=== PATIENT | female | born 1950 | race Caucasian/White ===

== ENCOUNTER → 2017-12-01 | Outpatient (CLI) | payer BC ==
[~2017-12-01] MED LIST: ACET-2031 PO; ALP5 PO; AMLO-543 PO; AMLO-96 PO; ATOR40TA24 PO; BACDS PO; CA C1TAB11 PO; CA C1TAB58 PO; CHOL10005 PO; IRBE150T7 PO; METF-421 PO; MULT-820 PO; PANT40TA13 PO; POLY17PO25 PO; SIMV-42 PO; SUC1 PO; TUM500 PO; VEN75 PO; VENL75CA4 PO
--- NOTE | 2017-12-01 11:39 | RADIOLOGY IMAGING REPORT ---
[place] [facility] [place] NAME: Yoli Walker : 1950 MR: [id number] V: [id number] EXAM DATE: ORDERING PHYSICIAN: JARRETT MCKINNON TECHNOLOGIST: [place] [facility] [place] [facility] [place] : 1950 Visit/Account:[id number] Date of Sevice: 12/01/2017 DEXA Scan Clinical history: Postmenopausal estrogen deficiency. Comparison: DEXA scan from 04/04/2008. LUMBAR SPINE: The bone mineral density (BMD) measured from L1-L4 correlates with a Z-score of 1.3 and a T-score of -0.3 which is Normal as defined by the World Health Organization. The corresponding risk of fracture in the lumbar spine is Not increased compared with a young adult reference population. This value h as decrease by 3.4 % since the prior study. More than 5% change is considered significant. HIP: Bone mineral density (BMD) measured in the LEFT total hip region correlates with a Z-score -0.2 and a T-score of -1.5 which is osteopenia as defined by the World Health Organization. The corresponding risk of fracture in the hip is 3 times increased compared to a young adult reference population. This value has decrease by 7.7% % since the prior study. More than 5% change is considered significant. T score left femoral neck -1.9 Bone mineral density (BMD) measured in the Femoral Neck region measures 0.773 g/cm?. IMPRESSION: 1. Lumbar spine: Normal. There has been 3.4% decrease in the bone mineral density since the previou s exam. 2. Left Total Hip: Osteopenia. There has been 7.7% decrease in the bone mineral density since the p revious exam. 3. Femoral Neck: Bone Mineral Density is 0.773 g/cm? The next DEXA scan of this patient should include the following sites: L1-L4 and the left hip. FRAX? WHO Fracture Risk Assessment Tool link: <http://www.shef.ac.uk/FRAX/tool.jsp?locationValue=9> PLEASE NOTE: 1) The World Health Organization defines low BMD as follows: T-score Normal > -1 Osteopenia < -1 and > -2.5 Osteoporosis < -2.5 without fractures Established osteoporosis < -2.5 with fractures 2) In general, you may wish to consider: Diagnosis Treatment Follow-up DEXA Normal BMD Prevention 2-3 years Osteopenia Prevention/therapy 1-2 years Osteoporosis Therapy Yearly 3) Fracture risk estimated from the T-score is more accurate for vertebral fractures (often spontane ous) than for hip fractures. Report Dictated By: Andreina Cruz MD at 12/01/2017 11:34 AM Report E-Signed By: Andreina Cruz MD at 12/01/2017 11:35 AM WSN:[email or web address]
== END ==
LOC: RAD 06:55
PROVIDERS: ATTEND Emergency Medicine
DX: Z13.820 Encounter for screening for osteoporosis (principal); M85.88 Other specified disorders of bone density and structure, other site
CPT/HCPCS: 77080

== ENCOUNTER → 2017-12-16 | Outpatient (CLI) | payer BC | LOC: LAB 10:34 | PROVIDERS: ATTEND Emergency Medicine | DX: M85.80 Other specified disorders of bone density and structure, unspecified site (principal) | CPT/HCPCS: 36415; 82310; 83970 ==

== ENCOUNTER → 2018-01-18 | Outpatient (CLI) | payer BC ==
[~2018-01-18] MED LIST changes: +RANI-366 PO
--- NOTE | 2018-01-19 11:43 | RADIOLOGY IMAGING REPORT ---
FACILITY: [facility] - [place] PATIENT NAME: ANDREA ESTRADA : [id number] MR: [id number] V: [id number] EXAM DATE: ORDERING PHYSICIAN: JARRETT MCKINNON TECHNOLOGIST: Mounika Carroll PROCEDURE:BILATERAL DIGITAL SCREENING MAMMOGRAM WITH CAD ASSISTED INTERPRETATION & 3D TOMOSYNTHESIS COMPARISON:Prior mammograms 01/15/17, 01/15/16, 01/12/15, 02/17/12, 01/31/11. INDICATIONS:SCREENING FINDINGS: Moderately dense fibroglandular tissue is seen throughout the breasts. The parenchymal pattern has remained stable allowing for difference in mammographic technique & patient positioning. There is no evidence of malignant appearing mass, malignant appearing calcifications or other secondary sign of malignancy in either breast. DIAGNOSTIC CATEGORY 1--NEGATIVE. RECOMMENDATIONS: ROUTINE MAMMOGRAM AND CLINICAL EVALUATION. IMPRESSION: BIRADS 1: Negative. No significant abnormality is seen. Dictated by: Andreina Cruz M.D. on 01/19/2018 at 8:32 Transcribed by: WILMA on 01/19/2018 at 8:56 Approved by: Andreina Cruz M.D. on 01/19/2018 at 11:42 [facility]
== END ==
LOC: MAMO 01:50
PROVIDERS: ATTEND Emergency Medicine
DX: Z12.31 Encounter for screening mammogram for malignant neoplasm of breast (principal)
CPT/HCPCS: 77063; 77067

== ENCOUNTER → 2018-07-08 | Outpatient (CLI) | payer BC ==
[~2018-07-08] MED LIST changes: +AMLO-111 PO; -AMLO-96 PO; -METF-421 PO; +METF-452 PO
--- NOTE | 2018-07-08 11:27 | EKG ---
FACILITY: [facility] - [place] PATIENT NAME: ANDREA ESTRADA : [id number] MR: [id number] V: [id number] EXAM DATE: ORDERING PHYSICIAN: KARLOS JIN TECHNOLOGIST: Test Reason : Pre-op Blood Pressure : / mmHG Vent. Rate : 067 BPM Atrial Rate : 067 BPM P-R Int : 172 ms QRS Dur : 082 ms QT Int : 406 ms P-R-T Axes : 061 -10 067 degrees QTc Int : 429 ms Sinus rhythm Slight ST elevation in anterior leads Poor R wave progression anteriorly No previous ECGs available Confirmed by SY LUCIANO ([id number]) on 07/08/2018 7:53:50 PM Referred By: Confirmed By:SY LUCIANO
== END ==
LOC: RESP 11:12
PROVIDERS: ATTEND Anesthesiology
DX: Z01.810 Encounter for preprocedural cardiovascular examination (principal); M75.102 Unspecified rotator cuff tear or rupture of left shoulder, not specified as traumatic
CPT/HCPCS: 93005

== ENCOUNTER 2018-09-16 07:51 | Emergency (ER) | payer BC ==
[~2018-09-16 07:51] MED LIST changes: -AMLO-111 PO; +AMLO-125 PO
[2018-09-16] MEDS ORDERED: ASPIRIN 81 MG CHEW PO ONE (08:10)
[2018-09-16 08:31] LABS: PLATELET COUNT, AUTOMATED 224 K/uL (150-450)
--- NOTE | 2018-09-16 08:32 | ER Report ---
History and Physical Time Seen By MD: 08:15 Hx. of Stated Complaint: ROTATOR CUFF SURG WITH SLING FOR LONG TIME CAUSING PAIN ACROSS CHEST, AWOKE HER LAST NIGHT HPI/ROS CHIEF COMPLAINT: Left anterior chest wall pain HISTORY OF PRESENT ILLNESS: Patient is a 67 year old female s/p right shoulder rotator cuff surgery; complaining of right chest wall pain; feels that this is related to her shoulder sling. There is a pleuritic component; but no actual pressure or exertional sx. No fevers or chills; No risk factors for VTE other than recent surgery. REVIEW OF SYSTEMS: Constitutional: No fever, no chills. Eyes: No discharge. ENT: No sore throat. Cardiovascular: Left anterior chest wall pain Respiratory: Dyspnea on exertion Gastrointestinal: No abdominal pain, no vomiting. Genitourinary: No hematuria. Musculoskeletal: No back pain. Skin: No rashes. Neurological: No headache. Allergies: Coded Allergies: erythromycin base (Verified Allergy, Mild, VOMITING, 09/16/18) Home Meds Active Scripts Irbesartan (IRBESARTAN) 150 Mg Tablet, 150 MG PO QDAY, #90 TAB 3 Refills Prov:JARRETT MCKINNON MD 07/09/18 Ranitidine Hcl (ZANTAC) 150 Mg Tablet, 150 MG PO BID, #180 TAB 3 Refills Prov:JARRETT MCKINNON MD 06/18/18 Atorvastatin Calcium (LIPITOR) 40 Mg Tablet, 1 TAB PO QDAY, #90 TAB 3 Refills Prov:JARRETT MCKINNON MD 03/30/18 Amlodipine Besylate (AMLODIPINE BESYLATE) 5 Mg Tablet, 0.5 TAB PO QDAY, #45 TAB 3 Refills Prov:JARRETT MCKINNON MD 11/30/17 Venlafaxine Hcl (VENLAFAXINE HCL ER) 75 Mg Cap.er.24h, 75 MG PO QDAY, #90 TAB 3 Refills Prov:JARRETT MCKINNON MD 11/30/17 Reported Medications Polyethylene Glycol 3350 (MIRALAX) 17 Gm Powd.pack, 17 GM PO BID 01/31/13 Acetaminophen (ACETAMINOPHEN) 325 Mg Tablet, 2 TAB PO TID, #2 01/31/13 Ca Carbonate/Vitamin D3/Vit K (Viactiv Tablet Chew) 1 Tab.chew Tab.chew, 1 TAB.CHEW PO DAILY 01/17/09 Discontinued Reported Medications Cholecalciferol (Vitamin D3) (VITAMIN D3) Unknown Strength Tablet, PO, TAB 11/30/17 Ca Carbonate/Vitamin D3/Vit K (VIACTIV SOFT CHEW TABLET) 1 Each Tab.chew, 1 EACH PO DAILY, TAB.CHEW 11/30/17 Multivitamins (Multivitamin) 1 Tab Tablet, 1 TAB PO DAILY 01/17/09 Past Medical/Surgical History Right shoulder surgery Hx Smoking: No Smoking Status: Never Smoker Exposure to Second Hand Smoke?: Yes (both parents smoked) Hx Substance Use Disorder: No Hx Alcohol Use: No Constitutional Vital Sign - Last 24 Hours 09/16/18 09/16/18 09/16/18 09/16/18 07:56 07:57 08:00 08:21 Temp 97.9 Pulse 60 60 Resp 20 13 B/P (MAP) 144/86 144/86 (105) 155/87 (109) Pulse Ox 100 O2 Delivery Room Air 09/16/18 09/16/18 09/16/18 09/16/18 08:30 08:35 09:00 09:05 Pulse 56 57 Resp 13 10 B/P (MAP) 155/86 (109) 150/76 (100) Pulse Ox 99 97 09/16/18 09/16/18 09/16/18 09/16/18 09:30 09:35 09:55 10:00 Resp 23 B/P (MAP) 148/115 (126) 149/82 (104) 152/89 (110) Pulse Ox 97 09/16/18 09/16/18 09/16/18 09/16/18 10:05 10:30 10:35 11:05 Pulse 59 59 57 Resp 16 14 13 B/P (MAP) 150/84 (106) Pulse Ox 96 98 98 09/16/18 11:35 Pulse 66 Resp 13 Pulse Ox 100 Physical Exam General/Constitutional: Patient is awake, alert, nontoxic and in no acute respiratory distress. Head: Normocephalic and atraumatic. Eyes: Conjunctival clear, Pupils are equal and reactive to light. Extraocular muscles are intact and symmetrical. Sclera are clear and anicteric. Ears:External canals are clear. Tympanic membranes are clear with normal [place] dmarks and light reflex. Nares: No rhinorrhea or bleeding. Turbinates are pink and moist. Oropharyngeal: Mucous membranes are moist. Neck: Supple, no adenopathy. Cardiovascular: Heart is regular rate and rhythm without audible murmurs, rubs or gallops. Pulmonary: Lungs are clear to auscultation bilaterally. There are no wheezes, rales, or rhonchi. Chest rise is symmetrical Abdomen: Soft, nontender, no guarding or peritoneal signs. Extremities: No gross deformities, No peripheral cyanosis. Able to move all 4 extremities. Neuro: Alert and oriented X3 Skin: No rashes, skin is warm dry and well perfused. Medical Decision Making Data Points Result Diagram: 09/16/18 0812 09/16/18 0812 Laboratory Hematology Test 09/16/18 08:12 09/16/18 08:47 Red Blood Count 4.78 M/uL (4.17-5.56) Mean Corpuscular Volume 96.0 fL (80.0-96.0) Mean Corpuscular Hemoglobin 32.9 pg (26.0-33.0) Mean Corpuscular Hemoglobin Concent 34.3 g/dL (32.0-36.0) Red Cell Distribution Width 13.8 % (11.5-14.5) Mean Platelet Volume 7.5 fL (7.2-11.1) Neutrophils (%) (Auto) 52.0 % (39.4-72.5) Lymphocytes (%) (Auto) 31.0 % (17.6-49.6) Monocytes (%) (Auto) 13.4 % (4.1-12.4) Eosinophils (%) (Auto) 2.9 % (0.4-6.7) Basophils (%) (Auto) 0.7 % (0.3-1.4) Nucleated RBC Relative Count (auto) 0.1 /100WBC Neutrophils # (Auto) 1.9 K/uL (2.0-7.4) Lymphocytes # (Auto) 1.2 K/uL (1.3-3.6) Monocytes # (Auto) 0.5 K/uL (0.3-1.0) Eosinophils # (Auto) 0.1 K/uL (0.0-0.5) Basophils # (Auto) 0.0 K/uL (0.0-0.1) Nucleated RBC Absolute Count (auto) 0.00 K/uL Prothrombin Time 12.8 seconds (12.0-14.4) Prothromb Time International Ratio 0.96 Activated Partial Thromboplast Time 30 seconds (23-35) D-Dimer Quantitative (PE/DVT) 0.73 ug/ml (0-0.50) Sodium Level 136 mmol/L (137-145) Potassium Level 4.0 mmol/L (3.5-5.0) Chloride Level 98 mmol/L (98-107) Carbon Dioxide Level 32 mmol/L (22-31) Blood Urea Nitrogen 17 mg/dl (7-18) Creatinine 1.00 mg/dl (0.52-1.04) Glomerular Filtration Rate Calc 55.1 Random Glucose 108 mg/dl (75-110) Calcium Level 9.4 mg/dl (8.4-10.2) Total Bilirubin 0.7 mg/dl (0.2-1.3) Aspartate Amino Transf (AST/SGOT) 35 U/L (0-35) Alanine Aminotransferase (ALT/SGPT) 30 U/L (0-56) Alkaline Phosphatase 90 U/L (0-126) Troponin I < 0.012 ng/ml B-Type Natriuretic Peptide 35 pg/ml (0-100) Total Protein 7.3 g/dl (6.3-8.2) Albumin 4.4 g/dl (3.5-5.0) Influenza Virus Type A (PCR) Negative (NEGATIVE) Influenza Virus Type B (PCR) Negative (NEGATIVE) Chemistry Test 09/16/18 08:12 09/16/18 08:47 White Blood Count 3.7 k/uL (4.5-11.0) Red Blood Count 4.78 M/uL (4.17-5.56) Hemoglobin 15.7 g/dL (12.0-16.0) Hematocrit 45.9 % (34.0-47.0) Mean Corpuscular Volume 96.0 fL (80.0-96.0) Mean Corpuscular Hemoglobin 32.9 pg (26.0-33.0) Mean Corpuscular Hemoglobin Concent 34.3 g/dL (32.0-36.0) Red Cell Distribution Width 13.8 % (11.5-14.5) Platelet Count 224 K/uL (150-450) Mean Platelet Volume 7.5 fL (7.2-11.1) Neutrophils (%) (Auto) 52.0 % (39.4-72.5) Lymphocytes (%) (Auto) 31.0 % (17.6-49.6) Monocytes (%) (Auto) 13.4 % (4.1-12.4) Eosinophils (%) (Auto) 2.9 % (0.4-6.7) Basophils (%) (Auto) 0.7 % (0.3-1.4) Nucleated RBC Relative Count (auto) 0.1 /100WBC Neutrophils # (Auto) 1.9 K/uL (2.0-7.4) Lymphocytes # (Auto) 1.2 K/uL (1.3-3.6) Monocytes # (Auto) 0.5 K/uL (0.3-1.0) Eosinophils # (Auto) 0.1 K/uL (0.0-0.5) Basophils # (Auto) 0.0 K/uL (0.0-0.1) Nucleated RBC Absolute Count (auto) 0.00 K/uL Prothrombin Time 12.8 seconds (12.0-14.4) Prothromb Time International Ratio 0.96 Activated Partial Thromboplast Time 30 seconds (23-35) D-Dimer Quantitative (PE/DVT) 0.73 ug/ml (0-0.50) Glomerular Filtration Rate Calc 55.1 Calcium Level 9.4 mg/dl (8.4-10.2) Total Bilirubin 0.7 mg/dl (0.2-1.3) Aspartate Amino Transf (AST/SGOT) 35 U/L (0-35) Alanine Aminotransferase (ALT/SGPT) 30 U/L (0-56) Alkaline Phosphatase 90 U/L (0-126) Troponin I < 0.012 ng/ml B-Type Natriuretic Peptide 35 pg/ml (0-100) Total Protein 7.3 g/dl (6.3-8.2) Albumin 4.4 g/dl (3.5-5.0) Influenza Virus Type A (PCR) Negative (NEGATIVE) Influenza Virus Type B (PCR) Negative (NEGATIVE) Coagulation Test 09/16/18 08:12 Prothrombin Time 12.8 seconds Prothromb Time International Ratio 0.96 Activated Partial Thromboplast Time 30 seconds D-Dimer Quantitative (PE/DVT) 0.73 ug/ml EKG/Imaging Imaging FACILITY: [facility] - [place] PATIENT NAME: Yoli Walker : 1950 MR: [id number] V: [id number] EXAM DATE: ORDERING PHYSICIAN: LISA MEADOWS TECHNOLOGIST: Location: [facility] Patient: Yoli Walker : 1950 Visit/Account:[id number] Date of Sevice: 09/16/2018 CT CTA CHEST W & W/O CON HISTORY: Chest pain. Shortness of breath. ADDITIONAL HISTORY: None. TECHNIQUE: CTA chest with contrast. 3D coronal slab MIPs and 2D reconstructions in the coronal and sagittal planes were also created. One of the following dose optimization techniques was utilized in the performance of this exam: automated exposure control; adjustment of the mA and/or kv according to patient size; or use of iterative reconstruction technique. Specific details can be referenced in the facility's radiology CT exam operational policy. CONTRAST: 95 cc of Isovue-300 COMPARISON: None. FINDINGS: Vessels: No acute filling defect within the pulmonary arteries. Lower neck: Negative. Heart and pericardium: Negative Mediastinum/hilum/lymph nodes: Negative. Lungs/pleura: 3 mm left lower lobe nodule (series 5 image 83). No co nsolidation. No pleural effusion. Visualized upper abdomen: Negative. Bones/soft tissues: Negative. Other findings: None significant IMPRESSION: 1. Negative examination for acute pulmonary embolism. 2. No other acute chest process identified. 3. 3 mm noncalcified left lower lobe pulmonary nodule. Please refer to Fleischner Society guidelines outlined below. FLEISCHNER SOCIETY FOLLOW-UP GUIDELINES FOR NEWLY DETECTED INCIDENTAL NODULES IN PERSONS 35 YEARS OF AGE OR OLDER. *These recommendations do NOT apply to lung cancer screening, patients with immunosuppression or patients with a known primary malignancy. SOLITARY SOLID NODULE If nodule size is < 6 mm: * Low risk patient ? No routine follow-up. * High risk patient ? Optional CT at 12 months. If nodule size is 6-8 mm: * Low risk patient ? CT at 6-12 months, then consider CT at 18-24 months if no change. * High risk patient ? CT at 6-12 months, then CT at 18-24 months if no change. If nodule size is > 8 mm: * Low risk patient ? Consider CT at 3, 9 and 24 months (if no change), PET/CT, tissue sampling or a combination thereof. * High risk patient ? Consider CT at 3, 9 and 24 months (if no change), PET/CT, tissue sampling, or a combination thereof. LOW RISK PATIENT: Minimal or absent history of tobacco use and of other known risk factors. HIGH RISK PATIENT: Tobacco use, family history of lung cancer, upper pulmonary lobe location of nodule, presence of emphysema, pulmonary fibrosis, older age. Fredy H, Chandler DP, Sylvester GRANGER, et al. Guidelines for Management of Incidental Pulmonary Nodules Detected on CT Images: From the Fleischner Society 2017. Radiology. Report Dictated By: Richard Meyers MD at 09/16/2018 11:24 AM Report E-Signed By: Richard Meyers MD at 09/16/2018 11:28 AM WSN:[id number] ED Course/Re-evaluation ED Course Patient with negative pronator but elevated d-dimer. CT scan of the chest reveals no evidence of acute pulmonary embolism. Patient's story seems more like musculoskeletal pain. We'll discharge home with recommendation to follow up with primary care provider. Decision to Disposition Date: Sep 16, 2018 Decision to Disposition Time: 11:41 Depart Departure Latest Vital Signs Vital Signs Date Time Temp Pulse Resp B/P (MAP) Pulse Ox O2 Delivery O2 Flow Rate FiO2 09/16/18 11:35 66 13 100 09/16/18 10:30 150/84 (106) 09/16/18 07:56 97.9 Room Air Impression: Primary Impression: CHEST PAIN ON BREATHING Condition: Improved Disposition: HOME OR SELF-CARE Referrals: JARRETT MCKINNON MD (PCP) Patient Instructions: Chest Wall Pain (GEN) LISA MEADOWS MD Sep 16, 2018 08:32
[2018-09-16 08:34] LABS: INR 0.96
--- NOTE | 2018-09-16 09:05 | EKG ---
FACILITY: [facility] - [place] PATIENT NAME: ANDREA ESTRADA : [id number] MR: [id number] V: [id number] EXAM DATE: ORDERING PHYSICIAN: LISA MEADOWS TECHNOLOGIST: Test Reason : chest pain Blood Pressure : / mmHG Vent. Rate : 061 BPM Atrial Rate : 061 BPM P-R Int : 184 ms QRS Dur : 084 ms QT Int : 446 ms P-R-T Axes : 061 -02 076 degrees QTc Int : 448 ms Sinus rhythm with premature atrial complexes Anterior infarct , age undetermined Abnormal ECG When compared with ECG of 08-JUL-2018 11:15, Previous ECG has undetermined rhythm, needs review Confirmed by KARLOS MARSHALL ([id number]) on 09/16/2018 1:02:10 PM Referred By: Confirmed By:KARLOS MARSHALL
--- NOTE | 2018-09-16 09:15 | RADIOLOGY IMAGING REPORT ---
FACILITY: [facility] - [place] PATIENT NAME: Yoli Walker : 1950 MR: [id number] V: [id number] EXAM DATE: ORDERING PHYSICIAN: LISA MEADOWS TECHNOLOGIST: Location: [facility] Patient: Yoli Walker : 1950 Visit/Account:[id number] Date of Sevice: 09/16/2018 Exam type: CHEST SINGLE AP History: Left-sided chest pain x3-4 weeks. Shoulder surgery July 22, 2018 Comparison: October 30, 2012. Findings: EKG leads overlie the thorax. There is no evidence of acute appearing infiltrates pleural effusions or pulmonary edema in the visualized chest. The cardiac silhouette is normal in size. The trachea i s in midline. IMPRESSION: 1. No acute cardiopulmonary process is seen Report Dictated By: Andreina Cruz MD at 09/16/2018 9:08 AM Report E-Signed By: Andreina Cruz MD at 09/16/2018 9:09 AM WSN:[email or web address]
[2018-09-16] MEDS ORDERED: NS(*) 0.9% 50 ML BAG 50 ML ONE (09:31)
[2018-09-16 10:30] VITALS: BP 150/84
--- NOTE | 2018-09-16 11:33 | RADIOLOGY IMAGING REPORT ---
FACILITY: [facility] PATIENT NAME: Yoli Walker : 1950 MR: [id number] V: [id number] EXAM DATE: ORDERING PHYSICIAN: LISA MEADOWS TECHNOLOGIST: Location: [facility] Patient: Yoli Walker : 1950 Visit/Account:[id number] Date of Sevice: 09/16/2018 CT CTA CHEST W & W/O CON HISTORY: Chest pain. Shortness of breath. ADDITIONAL HISTORY: None. TECHNIQUE: CTA chest with contrast. 3D coronal slab MIPs and 2D reconstructions in the coronal and sagittal planes were also created. One of the following dose optimization techniques was utilized in the performance of this exam: automated exposure control; adjustment of the mA and/or kv according to patient size; or use of iterative reconstruction technique. Specific details can be referenced in [facility] facility's radiology CT exam operational policy. CONTRAST: 95 cc of Isovue-300 COMPARISON: None. FINDINGS: Vessels: No acute filling defect within the pulmonary arteries. Lower neck: Negative. Heart and pericardium: Negative Mediastinum/hilum/lymph nodes: Negative. Lungs/pleura: 3 mm left lower lobe nodule (series 5 image 83). No consolidation. No pleural effusion . Visualized upper abdomen: Negative. Bones/soft tissues: Negative. Other findings: None significant IMPRESSION: 1. Negative examination for acute pulmonary embolism. 2. No other acute chest process identified. 3. 3 mm noncalcified left lower lobe pulmonary nodule. Please refer to Fleischner Society guidelines outlined below. FLEISCHNER SOCIETY FOLLOW-UP GUIDELINES FOR NEWLY DETECTED INCIDENTAL NODULES IN PERSONS 35 YEARS OF AGE OR OLDER. *These recommendations do NOT apply to lung cancer screening, patients with immunosuppression or watson ents with a known primary malignancy. SOLITARY SOLID NODULE If nodule size is < 6 mm: * Low risk patient ? No routine follow-up. * High risk patient ? Optional CT at 12 months. If nodule size is 6-8 mm: * Low risk patient ? CT at 6-12 months, then consider CT at 18-24 months if no change. * High risk patient ? CT at 6-12 months, then CT at 18-24 months if no change. If nodule size is > 8 mm: * Low risk patient ? Consider CT at 3, 9 and 24 months (if no change), PET/CT, tissue sampling or a combination thereof. * High risk patient ? Consider CT at 3, 9 and 24 months (if no change), PET/CT, tissue sampling, or a combination thereof. LOW RISK PATIENT: Minimal or absent history of tobacco use and of other known risk factors. HIGH RISK PATIENT: Tobacco use, family history of lung cancer, upper pulmonary lobe location of nodul e, presence of emphysema, pulmonary fibrosis, older age. Fredy H, Chandler DP, Sylvester GRANGER, et al. Guidelines for Management of Incidental Pulmonary Nodules Dete cted on CT Images: From the Fleischner Society 2017. Radiology. Report Dictated By: Richard Meyers MD at 09/16/2018 11:24 AM Report E-Signed By: Richard Meyers MD at 09/16/2018 11:28 AM WSN:[id number]
== END 2018-09-16 11:50 | disposition home or self-care (01) ==
LOC: ER 08:08
DX: R07.9 Chest pain, unspecified (principal); R06.02 Shortness of breath
CPT/HCPCS: 71045; 71275; 83880; 84484; 85025; 85379; 85610; 85730; 87502; 93005; 99284; J7050; Q9967; 82040; 82247; 82310; 82374; 82435; 82565; 82947; 84075; 84132; 84155; 84295; 84450; 84460; 84520

== ENCOUNTER → 2018-11-12 | Outpatient (CLI) | payer BC ==
[~2018-11-12] MED LIST changes: +LOSA50TA80 PO
== END ==
LOC: LAB 10:12
PROVIDERS: ATTEND Emergency Medicine
DX: I10 Essential (primary) hypertension (principal)
CPT/HCPCS: 36415; 82310; 82374; 82435; 82565; 82947; 84132; 84295; 84520

== ENCOUNTER → 2018-12-17 | Outpatient (CLI) | payer BC ==
[2018-12-17 11:32] LABS: PLATELET COUNT, AUTOMATED 220 K/uL (150-450)
== END ==
LOC: LAB 11:11
PROVIDERS: ATTEND Emergency Medicine
DX: R73.03 Prediabetes (principal); D72.821 Monocytosis (symptomatic)
CPT/HCPCS: 36415; 83036; 85025

== ENCOUNTER → 2019-02-01 | Outpatient (CLI) | payer BC ==
[~2019-02-01] MED LIST changes: -RANI-366 PO; +RANI-54 PO
--- NOTE | 2019-02-08 10:03 | RADIOLOGY IMAGING REPORT ---
[facility] PATIENT NAME: ANDREA ESTRADA : [id number] MR: [id number] V: [id number] EXAM DATE: [id number] ORDERING PHYSICIAN: JARRETT MCKINNON TECHNOLOGIST: Michelle Salas PROCEDURE: BILATERAL DIGITAL SCREENING MAMMOGRAM WITH CAD ASSISTED INTERPRETATION & 3D TOMOSYNTHESIS. REASON FOR STUDY: Screening. COMPARISON: [facility]. VIEWS OBTAINED: 2D & 3D full field CC & MLO projections. BREAST DENSITY: The breasts are heterogeneously dense. MAMMOGRAM FINDINGS: No masses or suspicious calcifications. IMPRESSION: BIRADS 1: Negative. DIAGNOSTIC CATEGORY 1--NEGATIVE. RECOMMENDATIONS: ROUTINE MAMMOGRAM AND CLINICAL EVALUATION IN 1YR. Dictated by: Vic Dsouza M.D. on 02/02/2019 at 8:34 Transcribed by: WILMA on 02/02/2019 at 9:36 Approved by: Natasha Guillermo M.D. on 02/08/2019 at 10:00 [facility]
== END ==
LOC: MAMO 00:56
PROVIDERS: ATTEND Emergency Medicine
DX: Z12.31 Encounter for screening mammogram for malignant neoplasm of breast (principal); Z80.3 Family history of malignant neoplasm of breast
CPT/HCPCS: 77063; 77067